=== PATIENT | female | born 1990 | race Two or more races ===

== ENCOUNTER 2023-07-02 09:45 | Inpatient (IN) | payer OTHER ==
[2023-07-02] MEDS ORDERED: LACTATED RINGERS SOLUTION 1,000 ML IV ONE (11:00)
[2023-07-02] MEDS ORDERED: AMPICILLIN SODIUM 2 GM VIAL ONE (12:27)
[2023-07-02] MEDS ORDERED: SODIUM CHLORIDE 100 ML IVPB ONE ×2 (12:27→16:36)
[2023-07-02] MEDS ORDERED: AMPICILLIN - 2 GM in SODIUM CHLORIDE 100 ML IVPB ONE ×2 (12:30→13:14)
[2023-07-02 13:05] VITALS: BMI 25.9
[2023-07-02 13:13] LABS: BASO % 0.1 % (0-2.0); EOS % 0.1 % (0-4.5); HEMATOCRIT 36.3 % (32.4-45.2); HEMOGLOBIN 12.1 GM/dL (10.7-15.3); LYMPH % 11.7 % (8-40); MCH 28.4 pg (25.7-33.7); MCHC 33.4 g/dl (32.0-36.0); MEAN CELL VOLUME 85.1 fl (80-96); MEAN PLT VOLUME 7.7 fl (7.5-11.1); MONO % 2.6 % (3.8-10.2); NEUT % 85.5 % (42.8-82.8); PLATELET COUNT 184 10^3/uL (134-434); RBC 4.26 M/mm3 (3.60-5.2); WHITE BLOOD COUNT 12.1 K/mm3 (4.0-10.0)
[2023-07-02] MEDS ORDERED: ELECTROLYTE-148 SOLN 1,000 ML IV SCH ×2 (13:15)
[2023-07-02] MEDS ORDERED: OXYTOCIN 30 UNITS in 0.9% NS 30 UNIT/500 ML INFUS.BAG IVPB ONE (13:18)
[2023-07-02 13:20] LABS: INR 0.93 (0.83-1.09); PROTHROMBIN TIME (PATIENT) 10.8 SEC (9.7-13.0)
[2023-07-02 13:22] LABS: ACTIVATED PTT 28.1 SECONDS (25.2-36.5)
[2023-07-02 13:29] LABS: POTASSIUM 3.8 mmol/L (3.5-5.1)
[2023-07-02 13:30] LABS: BLOOD UREA NITROGEN 8.7 mg/dL (7-18); CALCIUM 8.9 mg/dL (8.5-10.1)
[2023-07-02] MEDS ORDERED: OXYTOCIN 30 UNITS in 0.9% NS 30 UNIT/500 ML INFUS.BAG IVPB SCH (13:30)
[2023-07-02] MEDS ORDERED: FENTANYL/BUPIVACAINE/NS/PF - PCEA - 50 ML DISP.SYRIN EP ONE (13:33)
[2023-07-02 13:34] LABS: CREATININE 0.6 mg/dL (0.55-1.3)
[2023-07-02] MEDS ORDERED: NALOXONE HCL 0.4 MG/ML VIAL IVPUSH PRN (14:00)
[2023-07-02] MEDS ORDERED: FENTANYL/BUPIVACAINE/NS/PF - PCEA - 50 ML DISP.SYRIN EP SCH ×2 (14:00→14:16)
[2023-07-02] MEDS ORDERED: AMPICILLIN - 1 GM in SODIUM CHLORIDE 100 ML IVPB SCH ×2 (16:30→17:15)
[2023-07-02] MEDS ORDERED: AMPICILLIN SODIUM 1 GM VIAL ONE (16:36)
[2023-07-02] MEDS ORDERED: LIDOCAINE HCL 1% PRESERVATIVE FREE - 30ML VIAL ONE (18:05)
[2023-07-02] MEDS ORDERED: OXYTOCIN 20 UNITS in 0.9% NS 20 UNIT/1,000 ML INFUS.BAG IV ONE (18:05)
[2023-07-02] MEDS ORDERED: BENZOCAINE 28 GM HEMORRHOIDAL OINTMENT TP PRN (18:45)
[2023-07-02] MEDS ORDERED: oxyCODONE HCL 5 MG TABLET PO PRN (18:45)
[2023-07-02] MEDS ORDERED: BENZOCAINE 20% 57 GM BOTTLE TP PRN (18:45)
[2023-07-02] MEDS ORDERED: ACETAMINOPHEN 325 MG TABLET (FP) PO PRN (18:45)
[2023-07-02] MEDS ORDERED: BISACODYL 10 MG SUPP.RECT RC PRN (18:45)
[2023-07-02] MEDS ORDERED: OXYTOCIN 20 UNITS in 0.9% NS 20 UNIT/1,000 ML INFUS.BAG IV SCH (18:45)
[2023-07-02] MEDS ORDERED: WITCH HAZEL 50% (TUCKS) 40 PAD/JAR PAD TP PRN (18:45)
[2023-07-02] MEDS: METHYLERGONOVINE MALEATE 0.2 MG/1 ML AMP IM PRN ×2 (19:00→21:30)
[2023-07-02] MEDS ORDERED: oxyCODONE HCL 5 MG TABLET ONE (20:02)
[2023-07-02] MEDS ORDERED: TRANEXAMIC ACID 1000 MG/10 ML VIAL ONE (21:15)
[2023-07-03 09:22] LABS: BASO % 0.2 % (0-2.0); EOS % 0.5 % (0-4.5); HEMATOCRIT 37.4 % (32.4-45.2); HEMOGLOBIN 12.4 GM/dL (10.7-15.3); LYMPH % 12.9 % (8-40); MCH 28.5 pg (25.7-33.7); MCHC 33.2 g/dl (32.0-36.0); MEAN CELL VOLUME 85.9 fl (80-96); MEAN PLT VOLUME 7.9 fl (7.5-11.1); NEUT % 81.4 % (42.8-82.8); PLATELET COUNT 184 10^3/uL (134-434); RBC 4.36 M/mm3 (3.60-5.2); WHITE BLOOD COUNT 15.5 K/mm3 (4.0-10.0)
[2023-07-03] MEDS: IBUPROFEN 600 MG TABLET (FP) PO PRN (21:50)
[2023-07-03] MEDS ORDERED: SENNOSIDES/DOCUSATE COMBO (SENNA PLUS) TABLET (UD) PO PRN (22:00)
[2023-07-03 22:16] VITALS: TEMP 98.2
[2023-07-04] MEDS: IBUPROFEN 600 MG TABLET (FP) PO PRN (06:04)
[2023-07-04 08:58] VITALS: BP 110/63; PULSE 79; RESP 16
== END 2023-07-04 16:22 | disposition home or self-care (01) | DRG 560 ==
LOC: JDEL 09:45 → JLDR 12:23 → J3W 22:20
PROVIDERS: ADMIT Family Medicine; ATTEND Specialist
PROC: 10E0XZZ Delivery of Products of Conception, External Approach (ICD-10-PCS; principal; 2023-07-02)
DX: O80 Encounter for full-term uncomplicated delivery (principal); Z3A.38 38 weeks gestation of pregnancy; Z37.0 Single live birth
CPT/HCPCS: 36415; 59025; 80048; 85025; 85610; 85730; 86780; 86850; 86900; 86901